=== PATIENT | male | born 1985 | race African-American/Black ===

== ENCOUNTER → 2017-07-18 | Outpatient (CLI) | payer OTHER | LOC: M RAD 13:31 | DX: J90 Pleural effusion, not elsewhere classified (principal) | CPT/HCPCS: A9540 ==

== ENCOUNTER 2017-11-18 10:05 | Emergency (ER) | payer OTHER ==
[2017-11-18 10:50] LABS: ABG BASE EXCESS 2.1 (-2.0-2.0); ABG HCO3 26.6 MEQ/L (22.0-26.0); ABG O2 SATURATION 97.3 % (95.0-99.0); ABG PARTIAL PRESSURE CO2 41.3 mmHg (35.0-45.0); ABG PARTIAL PRESSURE O2 89.1 mmHg (75.0-100.0); ABG STANDARD HCO3 26.3 MEQ/L (22.0-26.0); ABG TOTAL CO2 27.9 MEQ/L (22.0-29.0); ABG pH (ARTERIAL) 7.427 UNITS (7.350-7.450)
== END 2017-11-18 11:26 | disposition home or self-care (01) ==
LOC: M ED 10:05
DX: G89.29 Other chronic pain (principal); R07.89 Other chest pain; I10 Essential (primary) hypertension; J45.909 Unspecified asthma, uncomplicated; E78.9 Disorder of lipoprotein metabolism, unspecified; Z86.711 Personal history of pulmonary embolism; Z86.718 Personal history of other venous thrombosis and embolism; Z79.899 Other long term (current) drug therapy; Z79.01 Long term (current) use of anticoagulants
CPT/HCPCS: 93005

== ENCOUNTER 2018-01-13 12:26 | Day surgery (SDC) | payer OTHER ==
[~2018-01-13 12:26] MED LIST: NS 1,000 ML IV
[2018-01-13] MEDS ORDERED: LIDOCAINE 2% INJ 100 MG/5 ML SDV (FOR ANES.) As Ordered (13:59)
[2018-01-13] MEDS ORDERED: PROPOFOL 200 MG/20 ML VIAL As Ordered ×2 (13:59→14:22)
[2018-01-13] MEDS ORDERED: fentaNYL 100 MCG/2 ML INJECTION (J3010) As Ordered (14:18)
== END 2018-01-13 15:12 | disposition home or self-care (01) ==
LOC: M OPP 12:26
DX: R12 Heartburn (principal); K21.9 Gastro-esophageal reflux disease without esophagitis; K22.8 Other specified diseases of esophagus; K29.70 Gastritis, unspecified, without bleeding; B96.81 Helicobacter pylori [H. pylori] as the cause of diseases classified elsewhere; R00.2 Palpitations; I10 Essential (primary) hypertension; Z86.718 Personal history of other venous thrombosis and embolism; R06.02 Shortness of breath; M54.89 Other dorsalgia; F41.9 Anxiety disorder, unspecified; I27.20 Pulmonary hypertension, unspecified; R51 Headache; Z86.711 Personal history of pulmonary embolism; G47.30 Sleep apnea, unspecified; Z87.891 Personal history of nicotine dependence; Z79.01 Long term (current) use of anticoagulants; Z79.899 Other long term (current) drug therapy
CPT/HCPCS: 43239

== ENCOUNTER → 2018-03-23 | Outpatient (CLI) | payer OTHER ==
[2018-03-23 09:25] LABS: ALBUMIN 4.4 GM/DL (3.2-5.2); ALBUMIN/GLOBULIN RATIO 1.29 (1.00-1.93); ALKALINE PHOSPHATASE 79 U/L (45-117); ALT/SGPT 33 U/L (12-78); AST/SGOT 18 U/L (7-37); BILIRUBIN,DIRECT < 0.1 MG/DL (0.0-0.2); BILIRUBIN,TOTAL 0.5 MG/DL (0.2-1.0); TOTAL PROTEIN 7.8 GM/DL (6.4-8.2)
== END ==
LOC: M LAB 08:29
DX: B96.81 Helicobacter pylori [H. pylori] as the cause of diseases classified elsewhere (principal)
CPT/HCPCS: 80076

== ENCOUNTER → 2018-03-24 | Outpatient (REF) | payer OTHER ==
[2018-03-26 00:08] LABS: H PYLORI STOOL ANTIGEN Negative (Negative)
== END ==
LOC: M LAB REF 09:45
DX: B96.81 Helicobacter pylori [H. pylori] as the cause of diseases classified elsewhere (principal)

== ENCOUNTER → 2018-04-28 | Outpatient (CLI) | payer OTHER | LOC: M RAD 07:55 | DX: I80.292 Phlebitis and thrombophlebitis of other deep vessels of left lower extremity (principal) | CPT/HCPCS: 93971 ==

== ENCOUNTER 2018-05-15 08:08 | Outpatient (RCR) | payer OTHER ==
[~2018-05-15 08:08] MED LIST changes: +ATOR1TAB21 PO; +BACL10TA2 PO; -NS 1,000 ML IV; +TESS100C PO; +TYLE500T78 PO; +XARE20TA PO; +ZYRT10CA5
[2018-05-15] MEDS ORDERED: OMEP40CA2 PO (08:24)
[2018-05-15] MEDS ORDERED: BACL1TAB8 PO (08:24)
== END 2018-05-18 ==
LOC: M PR 08:08
PROVIDERS: ATTEND Family Medicine
DX: I27.82 Chronic pulmonary embolism (principal)

== ENCOUNTER 2018-06-15 10:32 | Outpatient (RCR) | payer OTHER ==
[~2018-06-15 10:32] MED LIST changes: +BACL1TAB8 PO; +NEUR300C PO; +OMEP40CA2 PO
== END 2018-06-18 ==
LOC: M PR 10:32
PROVIDERS: ATTEND Family Medicine
DX: J44.9 Chronic obstructive pulmonary disease, unspecified (principal)